=== PATIENT | male | born 1990 | race Caucasian/White ===

== ENCOUNTER 2016-10-23 15:38 | Emergency (ER) | payer OTHER ==
[2016-10-23 17:07] LABS: HEMOGLOBIN 15.9 gm/dl (14.0-17.5); RED BLOOD COUNT 5.16 M/UL (4.20-5.50); WHITE BLOOD COUNT 5.6 K/UL (4.5-11.0)
[2016-10-23 17:24] LABS: BUN/CREATININE RATIO 24 (0-10)
== END 2016-10-23 20:05 | disposition home or self-care (01) ==
LOC: ER1 15:38
PROVIDERS: Physician Assistant Medical
DX: M25.512 Pain in left shoulder (principal); M25.511 Pain in right shoulder; E11.65 Type 2 diabetes mellitus with hyperglycemia; K21.9 Gastro-esophageal reflux disease without esophagitis; F17.210 Nicotine dependence, cigarettes, uncomplicated; Z79.4 Long term (current) use of insulin; Z79.899 Other long term (current) drug therapy
CPT/HCPCS: 36415; 71020; 72040; 80053; 82962; 85025; 86618; 96360; 96361; 96372; 99283; J1885; J7030